=== PATIENT | female | born 1965 | race Caucasian/White ===

== ENCOUNTER → 2017-07-25 12:14 | Outpatient (CLI) | payer BC ==
[2012-04-03 12:44] VITALS: BMI 38.5
== END | disposition home or self-care (01) ==
LOC: D.LABREF 12:14
DX: T84.50XA Infection and inflammatory reaction due to unspecified internal joint prosthesis, initial encounter (principal)

== ENCOUNTER → 2017-07-26 11:49 | Outpatient (CLI) | payer BC ==
[2012-04-03 12:44] VITALS: BMI 38.5
[2017-07-26 12:23] LABS: EOSINOPHILS 7.2 % (0-7); HEMOGLOBIN 10.7 g/dL (12-16); IMMATURE GRANULOCYTES 0.3 % (0-5); LYMPHOCYTES 31.7 % (15-50); MCH 24.5 pg (26.0-34.0); MCHC 31.5 g/dL (31.0-37.0); MEAN PLATELET VOLUME 9.5 fL (7.4-10.4); MONOCYTES 8.8 % (2-11); RBC 4.36 10x6/uL (4.00-5.40); RDW 16.4 % (11.5-14.5)
[2017-07-26 12:30] LABS: PLATELET COUNT 374 10x3/uL (130-400)
[2017-07-26 12:35] LABS: CALC OSMOLALITY 283 mosm/kg (275-300); CALCIUM 9.4 mg/dL (8.5-10.1); CHLORIDE - SERUM 106 mmol/L (98-107); CREATININE - SERUM 0.8 mg/dL (0.6-1.3); GLUCOSE 92 mg/dL (74-106); POTASSIUM - SERUM 3.7 mmol/L (3.5-5.1); SODIUM 143 mmol/L (136-145); UREA NITROGEN 9 mg/dL (7-18); eGFR NON AFRICAN AMERICAN 80 mL/min (90-120)
[2017-07-26 13:26] LABS: ERYTHROCYTE SEDIMENTATION RATE 18 mm/hr (0-30)
== END | disposition home or self-care (01) ==
LOC: D.LABREF 11:49
PROVIDERS: Internal Medicine Infectious Disease
DX: T84.50XD Infection and inflammatory reaction due to unspecified internal joint prosthesis, subsequent encounter (principal)